=== PATIENT | male | born 1970 | race African-American/Black ===

== ENCOUNTER 2016-06-09 22:43 | Emergency (ER) | payer SELFPAY ==
[2016-06-09 22:50] VITALS: BP 143/81; PULSE 86; RESP 20; TEMP 98.2
[2016-06-09] MEDS ORDERED: HYDROcodone/APAP 5-325MG 1 EACH TAB PO STA (23:10)
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
--- NOTE | 2016-06-09 23:51 | CT ---
EXAM: CT Head Without Intravenous Contrast. CLINICAL HISTORY: Reason: Pain TECHNIQUE: Axial computed tomography images of the head/brain without intravenous contrast. CTDI is 57.40 mGy and DLP is 1133.30 mGy-cm This CT exam was performed using one or more of the following dose reduction techniques: automated exposure control, adjustment of the mA and/or kV according to patient size, and/or use of iterative reconstruction technique. COMPARISON: None FINDINGS: Brain: No acute infarct or hemorrhage. No extra-axial fluid collection. No mass effect or midline shift. Ventricles and sulci: Normal. No ventriculomegaly or intraventricular hemorrhage. Skull: Normal. No bony lesion or fracture. Subcutaneous tissues: Normal. Sinuses: Normal. No air-fluid levels or mucosal thickening. Mastoid air cells: Normal. Orbits: Grossly unremarkable. IMPRESSION: No acute intracranial abnormality. EXAM: CT Cervical Spine Without Intravenous Contrast. CLINICAL HISTORY: Reason: Pain TECHNIQUE: Axial computed tomography images of the cervical spine without intravenous contrast. CTDI is 29.40 mGy and DLP is 704.80 mGy-cm This CT exam was performed using one or more of the following dose reduction techniques: automated exposure control, adjustment of the mA and/or kV according to patient size, and/or use of iterative reconstruction technique. COMPARISON: None FINDINGS: Bones: Straightening of the normal cervical lordosis. No acute fracture or bony lesion. Disc spaces: No subluxation. Mild degenerative disc disease, most prominent at C5-6 and C6-7. No spinal canal stenosis. Mild right-sided neural foraminal stenosis at C3-4. Soft tissues: Mild nonspecific midline soft tissue edema most prominently posteriorly at level of C6-7. Other: Scarring at right greater than left lung apices. IMPRESSION: No acute traumatic abnormality.
== END 2016-06-10 00:32 | disposition home or self-care (01) ==
LOC: EC 22:43
DX: F07.81 Postconcussional syndrome (principal); H92.01 Otalgia, right ear; M54.2 Cervicalgia; I10 Essential (primary) hypertension; F17.200 Nicotine dependence, unspecified, uncomplicated; Z79.899 Other long term (current) drug therapy
CPT/HCPCS: 70450; 72125; 99284